=== PATIENT | male | born 1965 | race African-American/Black ===

== ENCOUNTER 2024-09-30 23:09 | Inpatient (IN) | payer OTHER ==
[~2024-09-30] VITALS: Ht 190.5 cm; Wt 115.9 kg
[2024-10-01 00:44] LABS: BASOPHILS % (AUTO) 0.6 % (0.0-2.0); HEMATOCRIT 41.9 % (41-53); HEMOGLOBIN 13.8 g/dL (13.5-17.5); LYMPHOCYTES # (AUTO) 1.5 K/uL (1.0-4.8); LYMPHOCYTES % (AUTO) 19.4 % (22.0-44.0); MEAN CORPUSCULAR HEMOGLOBIN 30.1 pg (26.0-34.0); MEAN CORPUSCULAR VOLUME 91 fL (80-100); MONOCYTES # (AUTO) 0.9 K/uL (0.1-1.0); MONOCYTES % (AUTO) 10.9 % (2.0-9.0); NEUTROPHILS % (AUTO) 64.1 % (40.0-70.0); PLATELET COUNT (AUTO) 238 K/uL (150-450); RED BLOOD CELL COUNT(AUTO) 4.59 MIL/uL (4.50-5.90); RED CELL DISTRIBUTION WIDTH 15.7 % (11.5-14.5); WHITE BLOOD COUNT (AUTO) 7.8 K/uL (4.5-11.0)
[2024-10-01 00:50] LABS: LACTIC ACID 1.8 mmol/L (0.4-2.0)
[2024-10-01 00:54] LABS: ANION GAP 5 mmol/L (8-16); CALCIUM, TOTAL 8.8 mg/dL (8.8-10.5); CARBON DIOXIDE 32 mmol/L (22-29); CHLORIDE 104 mmol/L (98-107); CREATININE 1.71 mg/dL (0.60-1.30); GLOMERULAR FILTR. RATE CALC 50 mL/min (>60); GLUCOSE,RANDOM 210 mg/dL (70-110); POTASSIUM 3.9 mmol/L (3.5-5.1); SODIUM SERUM 141 mmol/L (136-145); UREA NITROGEN, BLOOD 19 mg/dL (7-18)
[2024-10-01 00:56] LABS: C-REACTIVE PROTEIN QUANT 4.11 mg/dL (0.00-0.30)
[2024-10-01 01:03] LABS: ERYTHROCYTE SEDIMENTATION RATE 40 MM/HR (0-20)
[2024-10-01] MEDS: CefTRIAXone SODIUM 2 GM in DEXTROSE 5%-WATER 50 ML IV ONE (02:09)
[2024-10-01] MEDS: VANCOMYCIN 1.75GM/WATER(PEG) 350 ML IV ONE (02:10)
[2024-10-01] MEDS ORDERED: APIX5TAB PO (03:55)
[2024-10-01] MEDS ORDERED: RIFA300C63 PO (03:55)
[2024-10-01] MEDS ORDERED: AMIT-260 PO (03:55)
[2024-10-01] MEDS ORDERED: MOME13HF11 IH (03:55)
[2024-10-01] MEDS ORDERED: EMPA25TA3 PO (03:55)
[2024-10-01] MEDS ORDERED: OMEP-148 PO (03:55)
[2024-10-01] MEDS ORDERED: CIPR250T6 PO (03:55)
[2024-10-01] MEDS ORDERED: ATOR40TA28 PO (03:55)
[2024-10-01] MEDS ORDERED: INSLAN SQ (03:55)
[2024-10-01] MEDS ORDERED: DULA1.5P SQ (03:55)
[2024-10-01] MEDS ORDERED: FURO80TA4 PO (03:55)
[2024-10-01] MEDS ORDERED: METO-325 PO (03:55)
[2024-10-01] MEDS ORDERED: KETO-108 OS (03:55)
[2024-10-01] MEDS: HYDROCODONE/ACETAMINOPHEN 5-325 MG TABLET PO ONE (04:36)
[2024-10-01 06:00] VITALS: BP 142/97; PULSE 76; RESP 20; TEMP 98.8; O2SAT 97
[2024-10-01 07:33] VITALS: BP 146/83; PULSE 96; RESP 18; TEMP 98.1; O2SAT 97
[2024-10-01 10:50] LABS: GLUCOMETER DEV NAME(LOC) 5S.2D; GLUCOSE,POINT OF CARE 251 MG/DL (70-110)
[2024-10-01 11:32] VITALS: BP 132/67; PULSE 91; RESP 18; TEMP 98.6; O2SAT 100
== END 2024-10-01 16:11 | disposition left against medical advice (07) | DRG 603 ==
LOC: EMS 23:26 → EDH 10-01 04:49 → 5S 10-01 06:00 → 6S 10-01 10:59
PROVIDERS: ADMIT Hospitalist; ATTEND Hospitalist
DX: L08.89 Other specified local infections of the skin and subcutaneous tissue (principal); E78.00 Pure hypercholesterolemia, unspecified; I10 Essential (primary) hypertension; S91.102A Unspecified open wound of left great toe without damage to nail, initial encounter; X58.XXXA Exposure to other specified factors, initial encounter; Z53.21 Procedure and treatment not carried out due to patient leaving prior to being seen by health care provider; I48.91 Unspecified atrial fibrillation; E11.9 Type 2 diabetes mellitus without complications; Z79.01 Long term (current) use of anticoagulants; Z79.899 Other long term (current) drug therapy; Z79.4 Long term (current) use of insulin; Y93.89 Activity, other specified; Y92.89 Other specified places as the place of occurrence of the external cause; Y99.8 Other external cause status; Z91.09 Other allergy status, other than to drugs and biological substances
CPT/HCPCS: 80048; 82962; 83605; 85025; 85651; 86140; 87040; 96365; 96368; 99285; J0696; J7060

== ENCOUNTER 2025-02-22 10:43 | Inpatient (IN) | payer OTHER ==
[~2025-02-22] VITALS: Ht 192.4 cm; Wt 106.8 kg
[~2025-02-22 10:43] MED LIST: AMIT-260 PO; APIX5TAB PO; ATOR40TA28 PO; CIPR250T6 PO; DULA1.5P SQ; EMPA25TA3 PO; FURO80TA4 PO; INSLAN SQ; KETO-108 OS; METO-325 PO; MOME13HF11 IH; OMEP-148 PO; RIFA300C63 PO
[2025-02-22] MEDS ORDERED: ZOLPIDEM TARTRATE 5 MG TABLET PO PRN (11:15)
[2025-02-22] MEDS ORDERED: DEXTROSE 50%-WATER 25 GM/50 ML SYRINGE IVP PRN (11:15)
[2025-02-22] MEDS ORDERED: MAGNESIUM HYDROXIDE SUSPENSION 30 ML UDCUP PO PRN (11:15)
[2025-02-22] MEDS ORDERED: ONDANSETRON HCL 4 MG/2 ML VIAL IVP PRN (11:15)
[2025-02-22] MEDS: METOPROLOL TARTRATE 25 MG TABLET PO SCH (11:45)
[2025-02-22] MEDS: VANCOMYCIN 1.5 GM/WATER(PEG) 300 ML IV ONE (11:45)
[2025-02-22] MEDS: PIPERACILLIN/TAZO 3.375 GM/D5W 50 ML IV ONE (11:45)
[2025-02-22 11:48] LABS: CALCIUM, TOTAL 9.2 mg/dL (8.8-10.5); CREATININE 1.35 mg/dL (0.60-1.30); GLOMERULAR FILTR. RATE CALC > 60 mL/min (>60); GLUCOSE,RANDOM 108 mg/dL (70-110); SODIUM SERUM 141 mmol/L (136-145); UREA NITROGEN, BLOOD 21 mg/dL (7-18)
[2025-02-22 11:50] LABS: PLATELET COUNT (AUTO) 247 K/uL (150-450); RED BLOOD CELL COUNT(AUTO) 4.72 MIL/uL (4.50-5.90); RED CELL DISTRIBUTION WIDTH 14.4 % (11.5-14.5); WHITE BLOOD COUNT (AUTO) 6.9 K/uL (4.5-11.0)
[2025-02-22 11:54] LABS: CREATINE KINASE, TOTAL ONLY 122 U/L (39-308)
[2025-02-22 11:56] LABS: APPEARANCE,URINE CLEAR (CLEAR); GLUCOSE, URINE (UA) >=1000 mg/dL (NEGATIVE); LEUKOCYTE ESTERASE ,URINE NEGATIVE (NEGATIVE); NITRATE,URINE NEGATIVE (NEGATIVE); OCCULT BLOOD,URINE NEGATIVE (NEGATIVE); SPECIFIC GRAVITIY, URINE 1.011 (1.003-1.030)
[2025-02-22 11:57] LABS: LACTIC ACID 0.9 mmol/L (0.4-2.0); TROPONIN I-HIGH SENSITIVITY 28 ng/L (<76)
[2025-02-22 14:46] VITALS: BP 112/78; PULSE 77; RESP 17; TEMP 98.6; O2SAT 99
[2025-02-22] MEDS ORDERED: SODIUM CHLORIDE 0.9% 500 ML IV ONE (14:52)
[2025-02-22] MEDS: OxyCODONE HCL/ACETAMINOPHEN 5-325 MG TABLET PO PRN (16:07)
[2025-02-22] MEDS: HEPARIN SODIUM,PORCINE 5,000 UNITS/ML VIAL SQ SCH (16:08)
[2025-02-22 16:23] VITALS: BP 117/76; PULSE 74; RESP 19; TEMP 98.2; O2SAT 98
[2025-02-22] MEDS: PIPERACILLIN/TAZO 3.375 GM/D5W 50 ML IV SCH (17:47)
[2025-02-22 19:21] LABS: GLUCOMETER DEV NAME(LOC) 5N.2C; GLUCOSE,POINT OF CARE 108 MG/DL (70-110)
[2025-02-22] MEDS: NYSTATIN 30 GM CREAM TP SCH (19:54)
[2025-02-22] MEDS: VANCOMYCIN 1GM/WATER(PEG/NADA) 200 ML IV SCH (19:55)
[2025-02-22 19:56] VITALS: BP 128/78; PULSE 86; RESP 19; TEMP 98.2; O2SAT 96
[2025-02-22 20:06] LABS: GLUCOMETER DEV NAME(LOC) 5N.1D; GLUCOSE,POINT OF CARE 197 MG/DL (70-110)
[2025-02-22] MEDS: DOCUSATE SODIUM 100 MG CAPSULE PO SCH (20:57)
[2025-02-23] VITALS (7 sets, daily range): BP systolic 114–153; BP diastolic 73–88; PULSE 80–91; RESP 18–19; TEMP 98.1–98.8; O2SAT 95–99
[2025-02-23 06:28] LABS: PLATELET COUNT (AUTO) 256 K/uL (150-450); RED BLOOD CELL COUNT(AUTO) 4.79 MIL/uL (4.50-5.90); RED CELL DISTRIBUTION WIDTH 14.2 % (11.5-14.5); WHITE BLOOD COUNT (AUTO) 6.3 K/uL (4.5-11.0)
[2025-02-23 06:48] LABS: CALCIUM, TOTAL 9.2 mg/dL (8.8-10.5); CREATININE 1.45 mg/dL (0.60-1.30); GLOMERULAR FILTR. RATE CALC 60.0 mL/min (>60); GLUCOSE,RANDOM 118.0 mg/dL (70-110); SODIUM SERUM 140.0 mmol/L (136-145); UREA NITROGEN, BLOOD 19.0 mg/dL (7-18)
[2025-02-23] MEDS: FAMOTIDINE 20 MG TABLET PO SCH (08:17)
[2025-02-23 08:28] LABS: BAND NEUTROPHILS % (MANUAL) 1 % (0-5); EOSINOPHILS % (MANUAL) 3 % (1-6); LYMPHOCYTES % (MANUAL) 31 % (22-44); MONOCYTES % (MANUAL) 6 % (2-9); SEGMENTED NEUTROPHILS % 59 % (40-70)
[2025-02-23 08:29] LABS: RBC MORPHOLOGY COMMENT NORMAL RBC MORPH
[2025-02-23 08:46] LABS: GLUCOMETER DEV NAME(LOC) 5N.1D; GLUCOSE,POINT OF CARE 104 MG/DL (70-110)
[2025-02-23] MEDS: INSULIN LISPRO 100 UNITS/ML SQ PRN (20:55)
[2025-02-24 03:44] VITALS: BP 141/83; PULSE 90; RESP 18; TEMP 98.6; O2SAT 96
[2025-02-24 06:05] LABS: GLUCOMETER DEV NAME(LOC) 5N.2C; GLUCOSE,POINT OF CARE 134 MG/DL (70-110)
[2025-02-24 06:05] LABS: GLUCOMETER DEV NAME(LOC) 5N.2C; GLUCOSE,POINT OF CARE 148 MG/DL (70-110)
[2025-02-24 06:05] LABS: GLUCOMETER DEV NAME(LOC) 5N.2C; GLUCOSE,POINT OF CARE 168 MG/DL (70-110)
[2025-02-24 06:47] LABS: PLATELET COUNT (AUTO) 275 K/uL (150-450); RED BLOOD CELL COUNT(AUTO) 4.86 MIL/uL (4.50-5.90); RED CELL DISTRIBUTION WIDTH 14.0 % (11.5-14.5); WHITE BLOOD COUNT (AUTO) 6.8 K/uL (4.5-11.0)
[2025-02-24 06:54] LABS: CALCIUM, TOTAL 8.9 mg/dL (8.8-10.5); CREATININE 1.27 mg/dL (0.60-1.30); GLOMERULAR FILTR. RATE CALC > 60 mL/min (>60); GLUCOSE,RANDOM 126 mg/dL (70-110); SODIUM SERUM 138 mmol/L (136-145); UREA NITROGEN, BLOOD 19 mg/dL (7-18)
[2025-02-24 08:39] VITALS: BP 117/72; PULSE 92; RESP 17; TEMP 98.8; O2SAT 98
[2025-02-24] MEDS: ACETAMINOPHEN 325 MG TABLET PO PRN (08:48)
[2025-02-24] MEDS ORDERED: SODIUM CHLORIDE 0.9% 500 ML IV ONE (11:33)
[2025-02-24 19:46] LABS: GLUCOMETER DEV NAME(LOC) 6S.2; GLUCOSE,POINT OF CARE 172 MG/DL (70-110)
[2025-02-24 19:58] VITALS: BP 120/68; PULSE 93; RESP 18; TEMP 98.1; O2SAT 98
[2025-02-24 21:20] LABS: GLUCOMETER DEV NAME(LOC) 5N.1D; GLUCOSE,POINT OF CARE 189 MG/DL (70-110)
[2025-02-25 04:34] VITALS: BP 143/89; PULSE 94; RESP 18; TEMP 98.4; O2SAT 100
[2025-02-25 06:30] LABS: GLUCOMETER DEV NAME(LOC) 4E.2; GLUCOSE,POINT OF CARE 134 MG/DL (70-110)
[2025-02-25] MEDS ORDERED: RINGERS SOLUTION,LACTATED 1,000 ML IV ONE (06:30)
[2025-02-25 07:00] LABS: CALCIUM, TOTAL 9.1 mg/dL (8.8-10.5); CREATININE 1.21 mg/dL (0.60-1.30); GLOMERULAR FILTR. RATE CALC > 60 mL/min (>60); GLUCOSE,RANDOM 139 mg/dL (70-110); SODIUM SERUM 138 mmol/L (136-145); UREA NITROGEN, BLOOD 21 mg/dL (7-18)
[2025-02-25] MEDS ORDERED: PROPOFOL 1% 20 ML VIAL IVP ONE (08:01)
[2025-02-25] MEDS ORDERED: ONDANSETRON HCL 4 MG/2 ML VIAL ONE (08:01)
[2025-02-25] MEDS ORDERED: PROPOFOL 1% ISO-OSM 1000 MG/100 ML BOTTLE ONE (08:01)
[2025-02-25 08:19] VITALS: BP 122/73; PULSE 96; RESP 18; TEMP 98.2; O2SAT 100
[2025-02-25 11:40] LABS: GLUCOMETER DEV NAME(LOC) 6S.2; GLUCOSE,POINT OF CARE 171 MG/DL (70-110)
[2025-02-25] MEDS: RINGERS SOLUTION,LACTATED 1,000 ML IV ONE (11:48)
[2025-02-25] MEDS: ETHYL ALCOHOL 62% ANTISEPTIC NASAL SANITIZER 0.6 ML AMPUL NASAL ONE (11:48)
[2025-02-25] MEDS: CHLORHEXIDINE GLUCONATE 2% TOWELETTE [2'S/6'S] TP ONE (11:48)
[2025-02-25] MEDS: LIDOCAINE/PF 2% 5 ML VIAL ONE (13:11)
[2025-02-25] MEDS: BUPIVACAINE HCL/PF 0.5% 30 ML VIAL ONE (13:11)
[2025-02-25] MEDS ORDERED: LEVA15HF3 IH (18:04)
[2025-02-25] MEDS ORDERED: LIDO1ADH48 TP (18:05)
[2025-02-25] MEDS ORDERED: MINE3.5O41 OU (18:10)
[2025-02-25] MEDS ORDERED: TRIA16.911 NASAL (18:11)
[2025-02-25] MEDS ORDERED: LEVO750T68 PO (18:12)
[2025-02-25] MEDS ORDERED: SULF-261 PO (18:13)
[2025-02-25 19:56] LABS: GLUCOMETER DEV NAME(LOC) 4E.2; GLUCOSE,POINT OF CARE 241 MG/DL (70-110)
[2025-02-25 20:00] VITALS: BP 130/85; PULSE 95; RESP 18; TEMP 98; O2SAT 99
[2025-02-25 22:46] LABS: GLUCOMETER DEV NAME(LOC) 4E.2; GLUCOSE,POINT OF CARE 192 MG/DL (70-110)
== END 2025-02-25 20:23 | DRG 857 ==
LOC: EMS 10:43 → EDH 11:09 → 5N 14:30 → 6S 02-24 11:15
PROVIDERS: ADMIT Internal Medicine; ATTEND Internal Medicine
PROC: 0Y6Q0Z0 Detachment at Left 1st Toe, Complete, Open Approach (ICD-10-PCS; principal; 2025-02-25 12:47)
DX: T81.41XA Infection following a procedure, superficial incisional surgical site, initial encounter (principal); E11.52 Type 2 diabetes mellitus with diabetic peripheral angiopathy with gangrene; I48.20 Chronic atrial fibrillation, unspecified; M86.8X7 Other osteomyelitis, ankle and foot; E11.40 Type 2 diabetes mellitus with diabetic neuropathy, unspecified; E78.00 Pure hypercholesterolemia, unspecified; I10 Essential (primary) hypertension; E11.69 Type 2 diabetes mellitus with other specified complication; Z95.818 Presence of other cardiac implants and grafts; Z79.01 Long term (current) use of anticoagulants; Z79.4 Long term (current) use of insulin; Z79.899 Other long term (current) drug therapy; Z91.199 Patient's noncompliance with other medical treatment and regimen due to unspecified reason; Z83.3 Family history of diabetes mellitus; Z93.3 Colostomy status; Y83.9 Surgical procedure, unspecified as the cause of abnormal reaction of the patient, or of later complication, without mention of misadventure at the time of the procedure; Y92.89 Other specified places as the place of occurrence of the external cause
CPT/HCPCS: 71045; 80048; 80202; 81001; 82550; 82962; 83605; 83880; 84145; 84484; 85025; 85610; 85730; 87040; 87081; 93005; 93306; 96365; 96366; 96368; 99285; J1171; J1644; J2405; J2543; J2704; J3490; J7040; J7120; 36415-L1; 36415-TC